=== PATIENT | male | born 1960 | race Caucasian/White ===

== ENCOUNTER → 2018-09-21 16:01 | Outpatient (CLI) | payer OTHER, SELFPAY ==
--- NOTE | 2018-09-21 | DI.MRI.S_ITS ---
PROCEDURE: MR SHOULDER RT WO CON INDICATIONS: RIGHT SHOULDER PAIN WITH DECREASE IN RANGE OF MOTION TECHNIQUE: Noncontrast oblique coronal T2 fast spin echo with fat saturation, oblique sagittal T1 spin echo and T2 fast spin echo with fat saturation, axial T1 spin echo and T2 fast spin echo with fat saturation through the shoulder. COMPARISON: [facility], MR, MR SHOULDER RT WO CON, 09/08/2016, 13:46. FINDINGS: Image quality: Excellent. Rotator cuff: There is full-thickness tearing of the entire supraspinatus tendon, as before, with medial retraction, and atrophy of the supraspinatus. There has been progressive, now full-thickness tearing of the entire infraspinatus tendon, with medial retraction and atrophy of the infraspinatus. The subscapularis and teres minor tendons are intact. Bones and bursae: No bone marrow contusions or fractures. Humeral head is subluxed superiorly. There is moderate acromioclavicular joint degeneration. The acromion demonstrates conventional anatomy, without an os acromiale. No pathologic subacromial-subdeltoid or subcoracoid bursal fluid is present. Capsule and soft tissues: In the absence of intra-articular contrast, the labrum and glenohumeral ligaments appear intact. The long head of the biceps tendon demonstrates normal location and split type tearing, as before. The rotator interval appears normal, without fibrosis. The coracohumeral ligament is normal in thickness. IMPRESSION: 1. Full-thickness tearing and atrophy of the supraspinatus and infraspinatus tendons. 2. Acromioclavicular joint osteoarthritis. 3. Split type tearing of the biceps tendon. Dictated by: Sherry Garcia M.D. on 09/24/2018 at 14:21 Approved by: Sherry Garcia M.D. on 09/24/2018 at 14:24
== END ==
PROVIDERS: Family Provider Family Medicine; PCP Family Medicine; Visit Provider Family Medicine
DX: M25.511 Pain in right shoulder (principal); M75.121 Complete rotator cuff tear or rupture of right shoulder, not specified as traumatic; M19.011 Primary osteoarthritis, right shoulder; S46.111A Strain of muscle, fascia and tendon of long head of biceps, right arm, initial encounter
CPT/HCPCS: 73221

== ENCOUNTER → 2018-11-02 12:41 | Outpatient (CLI) | payer OTHER, SELFPAY ==
--- NOTE | 2018-11-02 12:47 | DI.RAD.S_ITS ---
PROCEDURE: XR TIBIA FIBULA RT 2V INDICATIONS: LEFT LEG PAIN TECHNIQUE: 2 views of the tibia and fibula were acquired. COMPARISON: None. FINDINGS: Bones: There are postoperative changes from open reduction and internal fixation of comminuted fracture of the proximal left tibia and left medial malleolus. Anterograde intramedullary juanito with both proximal and distal interlocking screws are present. Fixation screw across the medial malleolus is noted. Medial plate and screws are also noted. No evidence for acute hardware complication. Mildly displaced comminuted fibular head and mid fibular diaphyseal fractures are present. Callus formation noted in the mid fibular diaphysis fracture site. No suspicious bony lesions. Soft tissues: No suspicious soft tissue calcifications or masses. Diffuse soft tissue swelling of the left lower leg presumably from recent surgical procedure. Small foci of soft tissue lucencies are visualized adjacent to the medial margin of the mid left tibia seen on the frontal projection are consistent with possible locules of gas. IMPRESSION: 1. Comminuted left tibial fractures status post open reduction and internal fixation as described above. No evidence for acute hardware complication. There is diffuse soft tissue swelling of the left lower leg with suggestion of possible soft tissue gas adjacent to the medial margin of the middle third tibial shaft, near the site of medial fixation plate. Findings are presumably related to recent surgical intervention. However, recommend correlation with date of most recent procedure and any clinical symptoms of possible infection. 2. Comminuted left fibular head and mid fibular diaphyseal fractures. Dictated by: Familia Irizarry M.D. on 11/02/2018 at 13:56 Approved by: Familia Irizarry M.D. on 11/02/2018 at 14:03
== END ==
PROVIDERS: PCP Student in an Organized Health Care Education/Training Program; Visit Provider Student in an Organized Health Care Education/Training Program
DX: M79.605 Pain in left leg (principal); S82.102D Unspecified fracture of upper end of left tibia, subsequent encounter for closed fracture with routine healing; S82.832D Other fracture of upper and lower end of left fibula, subsequent encounter for closed fracture with routine healing; X58.XXXD Exposure to other specified factors, subsequent encounter
CPT/HCPCS: 73590

== ENCOUNTER → 2019-07-26 15:27 | Outpatient (CLI) | payer OTHER, SELFPAY ==
--- NOTE | 2019-07-26 15:58 | DI.RAD.S_ITS ---
PROCEDURE: XR TIBIA FIBULA RT 2V INDICATIONS: OPEN DISPLACED COMM FRACTURE OF SHAFT LEFT TIBIA WITH ROUTIN TECHNIQUE: 2 views of the tibia and fibula were acquired. COMPARISON: [facility], CR, XR TIBIA FIBULA LT 2V, 11/02/2018, 12:48. FINDINGS: Bones: Fixation of the previously identified tibial fracture is again noted. There has been significant interval callus formation compared to prior exam. Similar appearance is noted within the mid fibular diaphyseal fracture. The proximal fibular fracture with displacement demonstrates healing but incomplete union. Soft tissues: No suspicious soft tissue calcifications or masses. IMPRESSION: Fractures as above. Hardware appears intact. Dictated by: Kelsi Delcid M.D. on 07/26/2019 at 16:18 Approved by: Kelsi Delcid M.D. on 07/26/2019 at 16:22
== END ==
PROVIDERS: PCP Student in an Organized Health Care Education/Training Program; Referring Provider Orthopaedic Surgery Orthopaedic Trauma; Visit Provider Orthopaedic Surgery Orthopaedic Trauma
DX: S82.252E Displaced comminuted fracture of shaft of left tibia, subsequent encounter for open fracture type I or II with routine healing (principal); S89.20 Unspecified physeal fracture of upper end of fibula; X58.XXXD Exposure to other specified factors, subsequent encounter
CPT/HCPCS: 73590

== ENCOUNTER → 2020-05-06 13:18 | Outpatient (CLI) | payer OTHER, SELFPAY ==
[2020-05-06 15:23] LABS: COVID19 -Nasal RAPID Negative (Negative)
== END ==
PROVIDERS: PCP Student in an Organized Health Care Education/Training Program; Visit Provider Nurse Practitioner
DX: Z20.822 Contact with and (suspected) exposure to COVID-19 (principal)
CPT/HCPCS: 87635

== ENCOUNTER 2020-05-08 14:55 | Day surgery (SDC) | payer OTHER, SELFPAY ==
--- NOTE | 2020-05-08 | PATH_ITS ---
[facility] Accession Number: [id number] . 01 Material submitted: . colon - ASCENDING COLON 3 MM . 01 Clinical history: . SCREENING COLONOSCOPY . 02 Diagnosis: Ascending Colon Polyp, 3 mm, Biopsy: Tubular adenoma. MRV 05/13/2020 1018 Local . 02 Electronically signed: . Kanu Coyne MD, PhD, Pathologist NPI- [id number] . 01 Gross description: . ASCENDING COLON 3 MM: Received in formalin are multiple fragment(s) of patel, soft tissue measuring 0.1 x 0.1 x 0.1 cm to 0.3 x 0.2 x 0.2 cm submitted entirely in 1 cassette(s) /KRISTIN 05/11/2020 1915 Local . 02 Pathologist provided ICD-10: D12.2 . 02 CPT . 835982 Performed at: 01 [facility] [address], [place], [place] [id number] MD Yazan Moseley MD Phone: [phone] Performed at: 02 [facility] [address] [place], [place] [id number] MD Beverly Hairston MD Phone: [phone]
--- NOTE | 2020-05-08 12:39 | PM.HP.1 ---
History of Present Illness History of Present Illness Date Patient Seen: 05/08/20 Chief complaint: SCREENING COLONOSCOPY Narrative: 59 Years Old Male seen today for consideration of a screening colonoscopy. Last colonoscopy in 2010, indicated for screening, significant for hyperplastic polyp x2 at 50 and 80 cm. There have been no lower GI symptoms suggesting disease such as change in bowel habits, bleeding, abdominal pain or anemia. There's been no family history of colon cancer or colon polyps. Overall health issues have been stable, including no major cardiac events for at least 6 weeks. Past Medical History: Leg cut by chain saw, fracture (1991) Salivary stones (07/1993) Right medial meniscus repair (01/2010) Left medial meniscus repair (01/2012) SHOULDER IMPINGEMENT SYNDROME, RIGHT Closed nondisplaced fracture of left tibial plateau THYROID NODULE TACHYCARDIA Hx of atrial fibrillation, had cardioversion HYPERLIPIDEMIA, MIXED HYPERTENSION Diabetes mellitus, type 2 with neuropathy ARTHRITIS LUMBAR RADICULOPATHY PAIN, LOW BACK W/SCIATICA PAIN, KNEE, RIGHT PSORIASIS, UNSPECIFIED ERECTILE DYSFUNCTION Hx of tobacco use ALCOHOL ABUSE Obesity Past Surgical History: Head injury - steel plate (1976) Rib fracture, pneumothorax (1985) Kne arthroscopy (02/17/12) Umbilical Hernia surgery 03/12/15 Tibia surgeries x5, 2019 Fasciotomy, 2019 Colonoscopy 2010, hyperplastic polyp x2 Family History: Reviewed history from 04/15/2014 and no changes required: Father: Alcohol Mother: Alcohol, Heart Disease, Hypertension Siblings: Alcohol, Stroke - brother [place] age 39, Hypertension, Hyperlipidemia Social History: Marital Status: Single [place] Occupation: [employer] Education: 12 years 8 alcoholic drinks per day. Meds Home Medications and Allergies Home Medications Medication Instructions Recorded Confirmed Type atorvastatin 40 mg PO DAILY 05/08/20 05/08/20 History carvedilol 25 mg PO BID 05/08/20 05/08/20 History metformin 500 mg PO BID 05/08/20 05/08/20 History quinapril-hydrochlorothiazide 20 - 25 tab PO DAILY 05/08/20 05/08/20 History Allergies Allergy/AdvReac Type Severity Reaction Status Date / Time No Known Drug Allergies Allergy Verified 05/08/20 15:05 Review of Systems Review of Systems ROS: Yes All systems reviewed with the patient and are negative except as otherwise documented Exam Narrative Exam Narrative: General: well developed, well nourished, in no acute distress, Head: normocephalic and atraumatic, Lungs: normal respiratory effort, clear bilaterally to auscultation, no wheezes rales or rhonchi. Heart: normal rate and regular rhythm, no murmurs, rubs, gallops, or clicks, Abdomen: abdomen soft and non-tender without masses, organomegaly, or abdominal wall hernias, bowel sounds positive. Skin: intact without suspicious lesions or rashes, Psych: alert and cooperative; normal mood and affect; normal attention span and concentration; cognition, remote and recent memory appear to be intact, Assessment & Plan Assessment & Plan narrative: 1. History of colon polyps, hyperplastic x2, 50 and 80 cm, 2010 2. Screening for colon cancer Plan for colonoscopy. The nature and character of the procedure as well as anticipated results were discussed. The possibility of not completing the procedure was also discussed. Possible complications including aspiration pneumonia, bleeding, perforation and reaction to medications either for sedation or preparation and missed lesions were discussed. Questions were answered and proceeding to the colonoscopy was elected. Informed consent signed. 3. Alcohol abuse Plan: Secondary to alcoholism, will consult MD anesthesia for this high risk patient. I sincerely appreciate the referral allowing me to participate in this patient's care. Please contact me with any questions or concerns.
--- NOTE | 2020-05-08 12:41 | PM.OP.ENDO ---
Operative Date/Time/Diagnoses Date of procedure: 05/08/20 Procedure Notes SCOAP/Timeout: 17:06 Procedure in detail: ENDOSCOPIST: Candis Richard MD Anesthesiologists: Dr. Patel Sedation start time: 17:07 Sedation end time: 17:28 PROCEDURE: Colonoscopy with biopsy INDICATIONS: 1. Screening for colon cancer 2. History of colon polyps, hyperplastic x2, 50 and 80 cm, 2010 3. Alcohol abuse MEDICATION: Levsin 0.125 mg sublingual, incremental doses of propofol until appropriate level of sedation achieved. ASA CLASS: 2 CECAL WITHDRAWAL TIME: 12 minutes COMPLICATIONS: None. EXTENT OF PROCEDURE: Cecum. QUALITY OF PREP: Good with portions of liquid stool. PROCEDURE: Prior to insertion of the colonoscope, a digital rectal examination was accomplished with circumferential palpation of the distal rectal mucosa without significant findings being noted. The high-definition colonoscope was passed into the rectum in the usual fashion and advanced over to the cecum without difficulty. The ileocecal valve, appendiceal stoma, and medial wall all could be inspected and no abnormalities were seen. ASCENDING COLON: As the colonoscope was withdrawn, care was taken to expose and inspect the haustral folds and a 3 mm polyp was seen and removed with cold biopsy forceps. HEPATIC FLEXURE: Normal, no polyps, diverticula or other abnormalities. TRANSVERSE COLON: Normal, no polyps, diverticula or other abnormalities. DESCENDING COLON: Normal, no polyps, diverticula or other abnormalities. SIGMOID COLON: Normal, no polyps, diverticula or other abnormalities. RECTUM: Normal. J maneuver was produced. There was no significant perianal disease. The J maneuver was broken. The remainder of the rectum was inspected and there was no external hemorrhoid disease. The scope was withdrawn. IMPRESSION: 1. Ascending polyp x1, 3 mm, removed with cold biopsy forceps. PLAN: 1. Follow-up in clinic status post pathology results. The possibility of a missed lesion including a malignancy has been discussed with the patient previously. Potential alarm symptoms have been discussed and should be reported immediately.
[2020-05-08 15:11] VITALS: BP 157/95; PULSE 69; RESP 16; TEMP 36.4; O2SAT 98; BMI 31.1
[2020-05-08] MEDS: LACTATED RINGERS 1,000 ML 42 ML IV (15:28)
[2020-05-08 17:34] VITALS: BP 110/71; PULSE 75; RESP 16; TEMP 36.8; O2SAT 96
[2020-05-08 17:39] VITALS: BP 120/70; PULSE 74; RESP 12; O2SAT 97
[2020-05-08 17:45] VITALS: BP 111/72; PULSE 70; RESP 14; TEMP 36.8; O2SAT 98
== END 2020-05-08 18:00 | disposition home or self-care (01) ==
PROVIDERS: PCP Student in an Organized Health Care Education/Training Program; Referring Provider Student in an Organized Health Care Education/Training Program; Visit Provider Student in an Organized Health Care Education/Training Program
PROC: 0DJD8ZZ Inspection of Lower Intestinal Tract, Via Natural or Artificial Opening Endoscopic (ICD-10-PCS; CPT 45378; principal; 2020-05-08 16:00)
DX: Z12.11 Encounter for screening for malignant neoplasm of colon (principal); Z86.010 Personal history of colon polyps; F10.10 Alcohol abuse, uncomplicated; D12.2 Benign neoplasm of ascending colon
CPT/HCPCS: 45380

== ENCOUNTER → 2020-05-21 12:28 | Outpatient (CLI) | payer OTHER, SELFPAY ==
--- NOTE | 2020-05-21 | DI.RAD.S_ITS ---
PROCEDURE: XR KNEE LT 3V INDICATIONS: LEFT KNEE PAIN TECHNIQUE: 3 views of the knee were acquired. COMPARISON: [facility], , KNEE 3V RIGHT, 01/25/2016, 14:11. FINDINGS: Bones: No fractures or dislocations. No suspicious bony lesions. Visualized proximal tibial fixation hardware appears grossly intact. However, there is fracture of the distal tibial fixation screw. Chronic fracture deformity of the mid tibial diaphysis, and proximal-mid fibula. Scattered degenerative subchondral sclerosis and spurring. Minimal narrowing of the medial joint space. Soft tissues: Moderate joint effusion. IMPRESSION: Postoperative and degenerative changes as detailed above. Dictated by: Justen Barfield M.D. on 05/21/2020 at 14:28 Approved by: Justen Barfield M.D. on 05/21/2020 at 14:33
== END ==
PROVIDERS: PCP Student in an Organized Health Care Education/Training Program; Referring Provider Student in an Organized Health Care Education/Training Program; Visit Provider Student in an Organized Health Care Education/Training Program
DX: M25.562 Pain in left knee (principal); M25.462 Effusion, left knee; T84.117A Breakdown (mechanical) of internal fixation device of bone of left lower leg, initial encounter
CPT/HCPCS: 73562

== ENCOUNTER → 2020-05-27 08:01 | Outpatient (CLI) | payer OTHER, SELFPAY ==
--- NOTE | 2020-05-27 | DI.MRI.S_ITS ---
PROCEDURE: MR KNEE LT WO CON INDICATIONS: Left knee pain TECHNIQUE: Noncontrast sagittal PD fast spin echo and T2 fast spin echo with fat saturation, sagittal 3-D FLASH with fat saturation; coronal T1 spin echo and PD fast spin echo with fat saturation, and axial PD fast spin echo with fat saturation through the knee. COMPARISON: [facility], CR, XR KNEE LT 3V, 05/21/2020, 13:35. FINDINGS: Image quality: Partially degraded by metallic artifact. Menisci: Linear oblique high signal intensity traverses the posterior horn medial meniscus, demonstrating inferior articular surface extension. Linear oblique high signal intensity traverses the anterior horn and body of the lateral meniscus, demonstrating inferior articular surface extension. Cruciate ligaments: The anterior and posterior cruciate ligaments appear intact. Medial structures: The medial collateral ligament appears intact. Visualized portions of the pes anserinus tendons appear normal. No abnormal bursal fluid. Lateral structures: The lateral collateral ligament, long and short heads of the biceps femoris tendon appear intact. The popliteus tendon appears normal. Iliotibial band appears normal. Anterior structures: The quadriceps and patellar tendons appear intact. Mild T2 signal elevation within the patellar tendon at the patellar insertion site. Patellar alignment is normal. No femoral trochlear dysplasia or ventral trochlear prominence. No edema in the infrapatellar fat pad. Bones and cartilage: No bone marrow contusions or fractures. Metallic artifact within the proximal tibia. Mild tricompartmental periarticular osteophyte formation. Mild diffuse articular cartilage loss overlies the weight-bearing aspects of the medial femoral condyle, medial tibial plateau, lateral femoral condyle, and lateral tibial plateau. Moderate articular cartilage loss overlies the lateral patellar facet. Joint space: There is a small knee joint effusion. No Ross's cyst. Normal appearing synovial plicae are incidentally noted. IMPRESSION: 1. Medial and lateral meniscal tearing. 2. Patellar tendinitis. 3. Small knee joint effusion. 4. Tricompartmental osteoarthritis with associated articular cartilage loss. Dictated by: Sherry Garcia M.D. on 05/27/2020 at 9:17 Approved by: Sherry Garcia M.D. on 05/27/2020 at 9:20
== END ==
PROVIDERS: PCP Student in an Organized Health Care Education/Training Program; Referring Provider Student in an Organized Health Care Education/Training Program; Visit Provider Student in an Organized Health Care Education/Training Program
DX: M25.562 Pain in left knee (principal); S83.242A Other tear of medial meniscus, current injury, left knee, initial encounter; S83.282A Other tear of lateral meniscus, current injury, left knee, initial encounter; M76.52 Patellar tendinitis, left knee; M17.12 Unilateral primary osteoarthritis, left knee; M25.462 Effusion, left knee
CPT/HCPCS: 73721

== ENCOUNTER → 2021-09-22 14:36 | Outpatient (CLI) | payer OTHER, SELFPAY ==
--- NOTE | 2021-09-22 14:39 | DI.CT.S_ITS ---
PROCEDURE: CT CHEST W CON INDICATIONS: Personal history of nicotine dependence TECHNIQUE: After the administration of intravenous contrast, 5 mm thick sections acquired from the pulmonary apices to the posterior costophrenic angles. 1 mm axial lung, 5 mm thick coronal and sagittal reformats and 7 mm axial MIP were acquired. For radiation dose reduction, the following was used: automated exposure control, adjustment of mA and/or kV according to patient size. COMPARISON: None. FINDINGS: Image quality: Excellent. Lungs and pleura: No acute air space opacities. No pleural effusions or pneumothorax. Mild bilateral upper and lower lobe bronchial wall thickening. Mild peripheral bronchial narrowing. Tiny, smooth right lateral tracheal wall nodule at the level of thoracic inlet measuring about 4 mm. Trace reticulation laterally in the lingula. Mediastinum: Heart size is mildly enlarged. No pericardial effusion. No mediastinal or hilar adenopathy by size criteria. Thoracic aorta and central pulmonary arteries are normal in size. Esophagus is normal in caliber. No hiatal hernia. Bones and chest wall: No suspicious bony lesions. Deformities of healed left rib fractures. No vertebral body compression fractures. No axillary or supraclavicular adenopathy by size criteria. Thyroid gland is heterogeneous and contains hypodensities in a mildly enlarged right lobe as well as a peripherally calcified subcentimeter nodule at the isthmus. Abdomen: Upper abdomen demonstrates moderate hepatic steatosis. Upper abdominal organs are otherwise normal. IMPRESSION: 1. Changes of mild bronchitis. This may be an element of COPD. 2. No significant emphysematous change. 3. Heterogeneous and enlarged right thyroid gland. Thyroid ultrasound is recommended. 4. Moderate hepatic steatosis. Dictated by: Ita Benson M.D. on 09/22/2021 at 17:14 Approved by: Ita Benson M.D. on 09/22/2021 at 17:49
== END ==
PROVIDERS: PCP Student in an Organized Health Care Education/Training Program; Referring Provider Student in an Organized Health Care Education/Training Program; Visit Provider Student in an Organized Health Care Education/Training Program
DX: J40 Bronchitis, not specified as acute or chronic (principal); E23.0 Hypopituitarism; R04.2 Hemoptysis; E04.1 Nontoxic single thyroid nodule; I51.7 Cardiomegaly; K76.0 Fatty (change of) liver, not elsewhere classified; Z87.891 Personal history of nicotine dependence
CPT/HCPCS: 71260; Q9967

== ENCOUNTER → 2021-10-07 09:13 | Outpatient (CLI) | payer OTHER, SELFPAY ==
--- NOTE | 2021-10-07 | DI.US.S_ITS ---
PROCEDURE: US THYROID INDICATIONS: NONTOXIC SINGLE THYROID NODULE TECHNIQUE: Real-time scanning was performed of the thyroid gland, with image documentation. COMPARISON: [facility], CT, CT CHEST W CON, 09/22/2021, 14:44. [facility], US, THYROID, 08/01/2016, 9:39. FINDINGS: Right: Thyroid lobe measures 5.4 x 3.4 x 2.4 cm, and is homogeneous in echotexture. Left: Thyroid lobe measures 5.0 x 2.0 x 2.5 cm, and is homogenous in echotexture. Isthmus: 2 mm thick. Nodule number: 1 Location: Right mid thyroid lobe Size: 3.9 x 3.2 x 2.4 cm, previously 2.7 x 2.2 x 3.8. Composition: Solid Echogenicity: Isoechoic Shape: wider than tall. Margins: Smooth Echogenic foci: None Total points: 3 ACR TI-RADS category: 3 Nodule number: 2 Location: Right thyroid lobe, medial/isthmus Size: 0.8 x 0.8 x 0.7 cm, previously 0.7 x 0.6 x 0.5 cm. Composition: Solid Echogenicity: Hypoechoic Shape: wider than tall. Margins: Small Echogenic foci: Macrocalcification Total points: 5 ACR TI-RADS category: 4 Nodule number: 3 Location: Left mid thyroid lobe Size: 1.4 x 0.8 x 1.1 cm, previously 0.7 x 0.7 x 1.1 cm. Composition: Solid Echogenicity: Hypoechoic Shape: wider than tall. Margins: Smooth Echogenic foci: Non Total points: 4 ACR TI-RADS category: 4 IMPRESSION: 3 thyroid nodules are identified. 1. Nodule 1 (TI-RADS 3) has increased in size and measures greatest than 2.5 cm. Recommend ultrasound-guided fine-needle aspiration biopsy. 2. Recommend continued ultrasound follow-up of nodule 2 and 3 (TI-RADS 4). 3. Please see below for follow-up recommendation. ACR TI-RADS definitions and recommendations: TI-RADS 1 (benign): 0 points. FNA not needed. TI-RADS 2 (not suspicious): 2 points. FNA not needed. TI-RADS 3 (mildly suspicious): 3 points. * FNA if 2.5 cm or larger, follow up if 1.5 cm or larger (at 1, 3, and 5 years). TI-RADS 4 (moderately suspicious): 4-6 points. * FNA if 1.5 cm or larger, follow up if 1 cm or larger (at 1, 2, 3, and 5 years). TI-RADS 5 (highly suspicious): 7 points or more. * FNA if 1 cm or larger, follow up if 0.5 cm or larger (every year for 5 years). Dictated by: Steffanie Beckwith M.D. on 10/07/2021 at 16:49 Approved by: Steffanie Beckwith M.D. on 10/07/2021 at 16:57
== END ==
PROVIDERS: PCP Student in an Organized Health Care Education/Training Program; Referring Provider Student in an Organized Health Care Education/Training Program; Visit Provider Student in an Organized Health Care Education/Training Program
DX: E04.2 Nontoxic multinodular goiter (principal)
CPT/HCPCS: 76536

== ENCOUNTER → 2021-11-09 12:34 | Outpatient (CLI) | payer OTHER, SELFPAY ==
--- NOTE | 2021-11-09 | PATH_ITS ---
Note [facility] Accession Number: [id number] TESTS RESULT FLAG UNITS REF RANGE LAB Clinician Provided Cytology Information No. of containers..01 Other (Miscellaneous) Source: RIGHT THYROID NODULE Clinician ICD10: E04.1 DIAGNOSIS: RIGHT THYROID NODULE INCONCLUSIVE. [place] CATEGORY III. FOLLICULAR LESION OF UNDETERMINED SIGNIFICANCE. SPECIMEN CONSISTS OF SCATTERED FOLLICULAR CELLS, SOME WITH THE SUGGESTION OF A MICROFOLLICULAR ARCHITECTURE. THE DIFFERENTIAL DIAGNOSIS INCLUDES CELLULAR ADENOMATOID NODULE AND FOLLICULAR NEOPLASM. Pathologist ICD10: R89.6, R89.6 Signed out by: Kaylen Minor MD, Pathologist NPI- [id number] Performed by: Minh Echevarria, Career Manager ([facility]) Gross description: 30 CC, RED, CLOUDY RECIEVED: IN CYTOLYT WITH BLUE CAP CONTAINER. /VDU 11/10/2021 0959 Local FLAG LEGEND: L-Low Normal,H-High Normal,LL-Alert Low,HH-Alert High <-Panic Low,>-Panic High,A-Abnormal,AA-Critical Abnormal Performed at: 01 =[facility] [address], [place] [address] Yazan Moseley MD, Performed at: 01 [facility] [address], [place], [place] [id number] MD Yazan Moseley MD Phone: [phone]
--- NOTE | 2021-11-09 | DI.US.S_ITS ---
PROCEDURE: US FINE NEEDLE ASPIRATION INDICATIONS: NODULE TECHNIQUE: The indications, alternatives, benefits, risks, and complications of the procedure were explained to the patient. Written informed consent was obtained and placed in the chart. The thyroid region was examined sonographically and a site was chosen for ultrasound guided percutaneous sampling. The skin was prepared and draped in the usual fashion, and anesthetized with 1% lidocaine infiltrated from the skin down to the thyroid gland. Multiple passes were then performed, with contents emptied into an appropriate pathology specimen container. A bandage was applied to the area of access at completion of the study. COMPARISON: [facility], US, US THYROID, 10/07/2021, 10:23. FINDINGS: Location(s) of lesion(s) sampled: Right lobe, mid [place]: 25 gauge hypodermic needles. Number of passes: 8 Medications: 1% lidocaine for local anaesthesia. Complications: None. IMPRESSION: Successful ultrasound-guided thyroid nodule fine needle aspiration, with cytology results pending. Please see chart below for management recommendations based on cytology results. [place] [facility] ReportingRecommendationsNon-diagnostic* Repeat US-guided FNA, with on-site cytology evaluation if possible. * Repeated non-diagnostic nodules without high suspicion US features: close observation vs surgical consult. * Consider surgery if nodule has high suspicion US features, grows >20% in 2 dimensions on followup, or patient has clinical risk factors for malignancy. Benign* If nodule has high suspicion US features: repeat US and FNA within 12 months. * If nodule has low to intermediate suspicion US features: repeat US at 12-24 months. If nodule grows (20% increase in at least 2 dimensions, with minimal increase of 2 mm or >50% change in volume), or development of new suspicious US features, then repeat FNA or continue followup. * If nodule has very low suspicion US features: followup US at >24 months. Atypia of undetermined significance, follicular lesion of undetermined significanceRepeat FNA, molecular testing, followup US, or surgical consult.Follicular neoplasm, suspicious for follicular neoplasmSurgical consult; also consider molecular testing. Suspicious for malignancySurgical consult.MalignantSurgical consult. Dictated by: Ori Galdamez M.D. on 11/09/2021 at 14:36 Approved by: Ori Galdamez M.D. on 11/09/2021 at 15:03
== END ==
PROVIDERS: PCP Internal Medicine; Referring Provider Internal Medicine; Visit Provider Internal Medicine
DX: E04.1 Nontoxic single thyroid nodule (principal)
CPT/HCPCS: 10005

== ENCOUNTER → 2021-12-22 12:01 | Outpatient (CLI) | payer OTHER, SELFPAY | PROVIDERS: PCP Internal Medicine; Visit Provider Physician Assistant | DX: L98.9 Disorder of the skin and subcutaneous tissue, unspecified (principal) | CPT/HCPCS: 87070; 87077; 87147; 87186; 87205; 87252 ==

== ENCOUNTER → 2023-08-28 10:46 | Outpatient (CLI) | payer OTHER, SELFPAY ==
--- NOTE | 2023-08-28 10:48 | DI.NM.S_ITS ---
PROCEDURE: NM BONE SCAN WHOLE BODY RADIOPHARMACEUTICAL: A 1.9 mCi Tc-99m MDP IV. INDICATIONS: RULE OUT ASEPTIC LOOSENING TECHNIQUE: Delayed whole-body scintigrams were obtained approximately 3-4 hours after intravenous injection of radiotracer. Anterior and posterior views were acquired from vertex to feet. Additional AP, posterior and oblique views of the knees were obtained. COMPARISON: [facility] [place], CR, XR KNEE ARTHRITIC SERIES BI, 07/07/2022, 10:39. [facility] [place] MR, MR KNEE RIGHT WITHOUT CONTRAST, 08/24/2022, 9:12. [facility] [place], CR, XR KNEE 4+ VIEWS RIGHT, 06/13/2023, 9:33. [facility] [place], CR, XR KNEE 4+ VIEWS RIGHT, 07/28/2023, 17:02. FINDINGS: Regional bone scan centered to the knees demonstrate right knee arthroplasty. There is increased activity around knee prosthesis at the prosthesis bone interface, suspicious for prosthesis loosening. Foci of increased periarticular activity are seen in left knee both ankle and right foot, compatible with degenerative/arthritic changes. Old fracture/deformity of the left tibial shaft is noted. Delayed whole-body bone scan was obtained. No lesions are identified in skull, sternum, clavicles, scapulae, ribs, bony pelvis, and visualized shafts of the long bones. There are foci of increased uptake in cervical, thoracic and lumbar spine most likely secondary to degenerative disc and facet disease; early metastasis to spine could be obscured by degenerative changes. There are foci of increased periarticular activity involving shoulders, wrists, and lower extremities, compatible with degenerative/arthritic changes. IMPRESSION: 1. The scintigraphic findings are suspicious for right knee prosthesis loosening. 2. Old fracture/deformity of the left tibial shaft. 3. Degenerative/arthritic changes in multiple peripheral joints. Dictated by: Steffanie Beckwith M.D. on 08/28/2023 at 15:23 Approved by: Steffanie Beckwith M.D. on 08/29/2023 at 7:44
== END ==
LOC: NUCM 10:47
PROVIDERS: PCP Family Medicine; Referring Provider Orthopaedic Surgery Foot and Ankle Surgery; Visit Provider Orthopaedic Surgery Foot and Ankle Surgery
DX: T84.84XA Pain due to internal orthopedic prosthetic devices, implants and grafts, initial encounter (principal); Z96.651 Presence of right artificial knee joint; Z87.828 Personal history of other (healed) physical injury and trauma
CPT/HCPCS: 78306; A9503

== ENCOUNTER → 2025-01-28 15:13 | Outpatient (CLI) | payer MEDICARE, SELFPAY ==
--- NOTE | 2025-01-28 15:14 | DI.US.S_ITS ---
PROCEDURE: US ABD AORTA ANEURYSM SCREEN INDICATIONS: AHISTORY OF SMOKING TECHNIQUE: Real time scanning was performed of the aorta and iliac arteries, with image documentation. COMPARISON: None. FINDINGS: Aorta: Proximal aortic diameter measures 3.2 x 3.3 cm. Mid-aorta measures 2.5 x 2.7 cm. Distal aortic diameter is 2.2 x 2.2 cm. Iliac arteries: Right common iliac artery measures 1.6 cm. Left common iliac artery measures 1.6 cm. IMPRESSION: Abdominal aortic aneurysm. 3 year follow-up recommended. Dictated by: Thierry Prajapati M.D. on 01/29/2025 at 16:24 Approved by: Thierry Prajapati M.D. on 01/29/2025 at 16:26
== END ==
LOC: US 15:14
PROVIDERS: PCP Family Medicine; Referring Provider Family Medicine; Visit Provider Family Medicine
DX: Z13.6 Encounter for screening for cardiovascular disorders (principal); I71.40 Abdominal aortic aneurysm, without rupture, unspecified; Z87.891 Personal history of nicotine dependence
CPT/HCPCS: 76706